=== PATIENT | male | born 2000 | race Two or more races ===

== ENCOUNTER 2022-08-03 10:41 | Emergency (ER) | payer OTHER ==
[~2022-08-03] VITALS: Ht 167.6 cm; Wt 68.0 kg
[2022-08-03] MEDS ORDERED: DICLOFENAC POTA50 MG PO (12:11)
[2022-08-03] MEDS ORDERED: CYCLOBENZAPRINE10 MG PO (12:11)
== END 2022-08-03 13:02 | disposition home or self-care (01) ==
LOC: ER 10:41
DX: S33.5XXA Sprain of ligaments of lumbar spine, initial encounter (principal)